=== PATIENT | female | born 1950 | race Caucasian/White ===

== ENCOUNTER 2016-12-28 00:09 | Emergency (ER) | payer MEDICARE ==
[2016-12-28 00:13] VITALS: BP 155/86; PULSE 74; RESP 18; O2SAT 97
--- NOTE | 2016-12-28 00:26 | ED.REPORT ---
HPI-Extremity Problem Lower Date of Service Dec 28, 2016 ED Provider: Price uGerra MD Pt is a 66 year old female with a history of HTN who presents to the ED complaining of right knee pain onset 11:30 after a ground level fall. She denies head injury, inability to walk, and any other symptoms. Per pt, she was walking down the stairs holding her granddaughter when she missed a step and fell to the ground. Pt reports that her last tetanus shot was within the last 10 years. Pt denies taking blood thinners. Nursing Notes Stated Complaint: RT KNEE LACERATION/ FALL Chief Complaint: Extremity Trauma Nursing Notes Reviewed: Yes ([employer], meds not reconciled) Allergies: Coded Allergies: No Known Allergies (Unverified , 12/28/16) General Time Seen by MD: 00:25 Chief Complaint Knee injury left Hx Obtained From: Patient Arrived By: Walk-in Onset Occurred: Just prior to arrival Symptom Duration: Since onset Caused by: Accidental Location: : Leg left Quality: Painful Severity: Current: Moderate Severity: Maximum: Moderate Recent Healthcare: No recent doctor visit, No recent hospitalization Similar Sx Previous: No Past Medical History Past Medical History Hypothyroidism Reports: GERD, Hypertension, Denies: Diabetes mellitus Reports: Depression Past Surgical History Carpal tunnel x2 Biopsies Reports: (x2), Cholecystectomy Smoking History Former Smoker Social History Alcohol Use: Denies alcohol use Drug Use: Denies drug use Other Social History: Good social support Ambulatory Status Independent Review of Systems Denies head injury Constitutional: Denies: Fever Musculoskeletal: Reports: Extremity pain Neurologic: Denies: Change LOC, Problem walking Complete sys rev & neg: except as marked. Physical Exam Initial Vital Signs Vital Signs (First) Date Time Temp Pulse Resp B/P Pulse Ox O2 Delivery O2 Flow Rate FiO2 12/28/16 00:13 36.4 74 18 155/86 97 Room Air Initial VS: Reviewed, Vital signs normal Head / Eyes: Atraumatic, Normocephalic Neck: Supple, Full range of motion Respiratory: Breath sounds normal, Clear to auscultation, No respiratory distress Cardiovascular: Regular rate & rhythm, Heart sounds normal, Intact distal pulses Abdomen / GI: Soft, Non-tender Upper Extremities: Vascular intact, Neuro intact Skin: Warm, Dry, No cyanosis Neurologic: Alert, Oriented, Nonfocal Psychiatric: Mood/affect normal, Behavior normal Lower Extremity / Pelvis / MS: Neurologic intact, Vascular intact 7 cm transverse laceration just above the right knee and involving just the skin. No effusion. I don't appreciate any tendon involvement. No foreign body. Normal extension. No weakness. Ankle / Foot: Neurologic intact, Vascular intact Interpretation & Diagnostics X-Ray Interpretation Xray Interpretation: Negative fracture Study Performed: 3 view X-Ray Ordered: Knee right Interpretation / Wet Read by: Wet read ED physician Procedures Laceration Management Time: : Procedure Performed by: ED physician Consent / Setup / Site Prep: Consent from patient, Time-out performed, Hand hygiene observed, Stand sterile technique Location of Wound: Right knee Wound Length: 7 cm Local Anesthesia: Bupivacaine 0.25% (w/ epi) Wound Preparation: Hibiclens - Chlorhexidine Debridement: None Irrigation: Copious Foreign Body Explore / Removal: Explored for foreign body (none) Undermining / Margins: Flaps aligned Repair Skin: Nylon (4) Closure Layers: 1 Suture Technique: Running (17) Post-Procedure / Complications: Antibiotic oint applied, Dressing applied, No complications, Condition improved, Tolerated procedure well, Patient stable Re-Eval/Medical Decision Med Decision/Clinical Course This is a pleasant 66-year-old female who fell on the last step while holding her grandchild, so she landed on her knee and has a knee laceration. She has been able to bear weight. She denies striking her head, neck pain, chest or abdominal symptoms. She denies any upper extremity injuries. She is up-to- date on tetanus. She is not a diabetic. Exam she does have a transverse laceration just superior to the knee joint. There is no knee effusion, she has intact range of motion. The laceration while high risk in location, allows for good exposure does not reveal signs of a tendon injury itself. There is no foreign debris. The wound was irrigated, and repaired. Plain radiographs are negative for fracture dislocation. Team care was discussed. The patient's from out of area follow up with PCP down in [place]. The patient is being covered with a course of cephalexin given the location of the injury. Source of Hx: Old records Re-Evaluation/Progress #1: Time of Eval: 01:01 Re-Evaluation/Progress Note: Pt rechecked. Performed laceration management with pt's consent. All questions addressed. Re-Evaluation/Progress #2: Time of Eval: 01:27 Re-Evaluation/Progress Note: Informed pt of plan for discharge. Pt understands and agrees with plan for discharge. F/U instructions and RTER warnings given. All questions addressed. Differential Diagnosis: Positive: Laceration, Negative: Abrasion, Cellulitis, Compartment syndrome, Intertrochanteric fractur, Proximal tibia fracture, Puncture wound, Subungual hematoma, Superficial thrombophleb Counseled Regarding: Diagnosis, Need for follow-up, When/why to return to ED Discharge & Departure Impression: Primary Impression: Laceration of knee Encounter type: initial encounter Laterality: right Qualified Code: S81.011A - Laceration without foreign body, right knee, initial encounter Disposition: Home Discharge Condition All VS Reviewed: Yes Condition: Stable Additional Instructions: 1. Keep wound clean. Okay to shower, but no swimming or soaking. After showering, apply antibiotic ointment such as bacitracin or Neosporin daily. 2. No deep knee bends, limited activities for the next 4-5 weeks. 3. You should be seen immediately if any signs of infection develop: Redness, swelling, increasing pain, fever. 4. Take the antibiotic cephalexin 500 mg 3 times a day for the next 7 days. 5. Take ibuprofen 400 mg 3 times a day if needed for pain. 6. The sutures should be removed in approximately 14 days, call for an appointment with her primary care physician in [facility]. Referrals: Jersey Guadalupe Attestation Portions of this note were transcribed by Carrie Bourgeois. I, Dr. Guerra personally performed the history, physical exam and medical decision-making; I reviewed and confirmed the accuracy of the information in the transcribed note. Signed by: Bernie Rasmussen, 12/28/16. copies to: [place] Guadalupe (PCP) Price Guerra MD Dec 28, 2016 00:26 Carrie Lopez Dec 28, 2016 00:35
[2016-12-28] MEDS ORDERED: Bupivacaine-MPF 0.5% W/EPI 30 mL Inj NERVEBLOCK ONE (00:40)
[2016-12-28] MEDS ORDERED: Bupivacaine 0.5%/EPI 50 mL Inj ONE (00:49)
[2016-12-28 01:44] VITALS: BP 158/82; PULSE 75; RESP 18; O2SAT 98
--- NOTE | 2016-12-28 08:24 | DRSVH ---
PROCEDURE: X-RAY RIGHT KNEE, THREE VIEWS ([id number]) INDICATIONS: fall, laceration TECHNIQUE: 3 views of the knee were acquired. COMPARISON: None. FINDINGS: Bones: No fractures or dislocations. No suspicious bony lesions. Minimal spurring of intercondylar eminence would be consistent with minimal osteoarthritic change. Soft tissues: No joint effusion. No suspicious soft tissue calcifications. There is a laceration w ith air in soft tissues anterior to the patella with subcutaneous edema anterior to the knee. IMPRESSION: Anterior laceration of soft tissues. No fracture is seen. No effusion is seen. Dictated by: Jeffrey Coello M.D. on 12/28/2016 at 8:21 Approved by: Jeffrey Coello M.D. on 12/28/2016 at 8:22
[2016-12-28] MEDS ORDERED: _Cephalexin 500 mg Capsule PO SCH (08:30)
== END 2016-12-28 02:04 | disposition home or self-care (01) ==
LOC: SED 00:09
DX: S81.011A Laceration without foreign body, right knee, initial encounter (principal); W10.8XXA Fall (on) (from) other stairs and steps, initial encounter; Y93.01 Activity, walking, marching and hiking; Y92.009 Unspecified place in unspecified non-institutional (private) residence as the place of occurrence of the external cause; Y99.8 Other external cause status; I10 Essential (primary) hypertension; K21.9 Gastro-esophageal reflux disease without esophagitis; E03.9 Hypothyroidism, unspecified; Z87.891 Personal history of nicotine dependence